=== PATIENT | male | born 1995 | race Caucasian/White ===

== ENCOUNTER 2022-05-15 22:56 | Emergency (ER) | payer BC ==
[~2022-05-15] VITALS: Ht 198.1 cm; Wt 85.7 kg
--- NOTE | 2022-05-15 23:05 | NUR ---
C/O PALPITATION AFTER WALKING HIS DOG 3 HRS AGO, SMOKE WEEDS AT 1800 VSS, EKG DONE,PLACE IN 2, VSS. REPORT TO [facility] GASCA
[2022-05-15 23:30] VITALS: BP_SYST 136
--- NOTE | 2022-05-15 23:40 | NUR ---
Patient is A/Ox4, VSS, ambulatory, resp even and unlabored. Patient states "I kathrin feel dumb now for coming to the hospital because I think I was feel my heart racing earlier cause I smoked weed. I probably was just feeling anxious or something. I feel fine now." Patient is seen talking to a friend while sitting upright in bed with safety precautions in place. Nad noted at this time.
--- NOTE | 2022-05-16 00:18 | NUR ---
PILAR Mercer at bedside.
[2022-05-16 00:29] VITALS: BP_SYST 136
--- NOTE | 2022-05-16 00:29 | NUR ---
Patient given written and verbal discharge instructions and verbalizes understanding. ER MD discussed with patient the results and treatment provided. Patient in stable condition. ID arm band removed. Patient educated on pain management and to follow up with PMD. Pain Scale 0/10. Opportunity for questions provided and answered. Patient in stable condition upon discharge.
== END 2022-05-16 00:29 | disposition home or self-care (01) ==
LOC: SED 22:56
DX: R00.2 Palpitations (principal); F12.90 Cannabis use, unspecified, uncomplicated; Z79.899 Other long term (current) drug therapy
CPT/HCPCS: 93005; 99283